=== PATIENT | male | born 1980 | race Caucasian/White ===

== ENCOUNTER 2016-06-16 13:06 | Outpatient (CLI) | payer OTHER ==
[2016-06-16] MEDS ORDERED: GADOPENTETATE DIMEGLUMINE 5 ML VIAL IVP ONE (14:03)
[2016-06-16] MEDS ORDERED: IOTHALAMATE MEGLUMINE 50 ML VIAL IU ONE (14:03)
[2016-06-16] MEDS ORDERED: BUFFERED LIDOCAINE 10 ML SYRINGE IU ONE (14:03)
== END 2016-06-16 13:07 | disposition home or self-care (01) ==
DX: M25.512 Pain in left shoulder (principal); M75.82 Other shoulder lesions, left shoulder
CPT/HCPCS: 23350; 73222; 77002; Q9961

== ENCOUNTER 2019-06-05 14:46 | Emergency (ER) | payer OTHER ==
--- NOTE | 2019-06-05 16:46 | ED Physician Documentation ---
PD HPI BACK INJURY - Stated complaint Stated Complaint: LT SHOULDER PAIN - History obtained from History obtained from: Patient - History of Present Illness Location: Left, Upper (scapular area) Type of injury: No: Fall, Twist (he had had cough and cold symptoms, so thought he had strained muscle with coughing. Having increasing pain left scapular area, radiating to left arm.), Blunt / blow Where injury occurred: Home Timing - onset: How many days ago (2-3) Timing - duration: Days Timing - details: Gradual onset, Still present Quality: Pain, Sharp, Aching Improved by: No: Rest Worsened by: Moving (left shoulder, causes it to hurt in scapular area.), Palpating, Other (does not hurt with breathing.) Associated symptoms: No: Fever, Weakness, Numbness Similar symptoms before: Has not had sx before Recently seen: Clinic (seen at [facility] and Rx Naproxen and methocarbamol without improvement. Says he had CXR there that was normal.) Review of Systems Constitutional: denies: Fever, Chills, Myalgias Nose: denies: Rhinorrhea / runny nose, Congestion Throat: denies: Sore throat Respiratory: reports: Cough (last week, improving) PD PAST MEDICAL HISTORY - Past Medical History Cardiovascular: None Respiratory: None Endocrine/Autoimmune: None GI: None : None HEENT: Chronic vision loss Psych: None Musculoskeletal: Other Derm: None - Past Surgical History Ortho: Other - Present Medications Home Medications: Ambulatory Orders Medication Instructions Recorded Confirmed Ibuprofen [Motrin] 800 mg PO Q8H PRN 11/29/16 11/29/16 Oxycodone HCl/Acetaminophen 1 each PO Q4H PRN #15 tablet 06/05/19 [Percocet 7.5-325 mg Tablet] dexAMETHasone [Decadron] 4 mg PO DAILY #5 tablet 06/05/19 - Allergies Allergies/Adverse Reactions: Allergies Allergy/AdvReac Type Severity Reaction Status Date / Time No Known Drug Allergies Allergy Verified 06/05/19 15:09 PD ED PE NORMAL - Vitals Vital signs reviewed: Yes - General General: Alert and oriented X 3, Well developed/nourished - Neck Neck: Supple, no meningeal sign, No adenopathy - Cardiac Cardiac: RRR, No murmur - Respiratory Respiratory: Clear bilaterally - Back Back: No spinal TTP, Other (tender left infrascapular area with point focal tender in muscle there. No tenderness to percussion in thoracic spine. No redness nor rash. ) - Derm Derm: Normal color, Warm and dry - Extremities Extremities: Other (not tender in the shoulder nor arm itself. ) - Neuro Neuro: Alert and oriented X 3, No motor deficit, No sensory deficit, Normal speech Results - Vitals Vitals: Vital Signs - 24 hr 06/05/19 06/05/19 15:09 17:54 Temperature 36.6 C Heart Rate 81 80 Respiratory 17 16 Rate Blood Pressure 142/76 H 138/74 H O2 Saturation 98 98 Oxygen O2 Source Room air PD MEDICAL DECISION MAKING - ED course Complexity details: considered differential (seems muscular. Not pleuritic. Has trigger point in scapular area that I injected with Lido/Kenalog. ), d/w patient Departure - Departure Disposition: Home, Self Care Clinical Impression: Muscle strain of left scapular region Qualifiers: Encounter type: initial encounter Qualified Code(s): S46.912A - Strain of unspecified muscle, fascia and tendon at shoulder and upper arm level, left arm, initial encounter Condition: Stable Record reviewed to determine appropriate education?: Yes Instructions: ED Sprain Thoracic Spine Follow-Up: [facility] [Provider Group] Prescriptions: dexAMETHasone [Decadron] 4 mg PO DAILY #5 tablet Oxycodone HCl/Acetaminophen [Percocet 7.5-325 mg Tablet] 1 each PO Q4H PRN #15 tablet PRN Reason: Pain Comments: Sling for the arm to reduce movement at the shoulder girdle the naproxen and methocarbamol anti-inflammatory and muscle relaxant. Add Decadron steroid anti-inflammatory as well. To that add Tylenol or oxycodone as needed for pain. Recheck if not improving well over the next couple of days. Heat and gentle range of motion of the shoulder once you start feeling better. Discharge Date/Time: 06/05/19 17:54
[2019-06-05] MEDS ORDERED: KETOROLAC 60 MG/2 ML VIAL IM STA (17:12)
[2019-06-05] MEDS ORDERED: TRIAMCINOLONE 40 MG/ML VIAL IM STA (17:13)
[2019-06-05 17:55] VITALS: BP 138/74
== END 2019-06-05 17:54 | disposition home or self-care (01) ==
LOC: ED 14:46
DX: S46.912A Strain of unspecified muscle, fascia and tendon at shoulder and upper arm level, left arm, initial encounter (principal); X58.XXXA Exposure to other specified factors, initial encounter; R05 Cough
CPT/HCPCS: 20552; 93005; 96374

== ENCOUNTER 2019-06-06 08:33 | Emergency (ER) | payer OTHER ==
--- NOTE | 2019-06-06 08:45 | ED Physician Documentation ---
PD HPI BACK INJURY - Stated complaint Stated Complaint: L SHOULDER PX - History obtained from History obtained from: Patient - History of Present Illness Location: Left, Upper (scapular area) Timing - onset: How many days ago (4-5) Worsened by: Moving, Palpating, Other (no change with breathing) Recently seen: Emergency Dept (seen yesterday in ER for this; was not able to get Rx for pain meds due to holiday hours of pharmacy and used take home meds. Was going to Pharmacy and pain was enough to come to ER instead. No change in pain from yesterday. No fever, no rash, no focal weakness.) Review of Systems Constitutional: denies: Fever, Chills Respiratory: denies: Dyspnea, Cough, Wheezing Skin: denies: Rash Musculoskeletal: denies: Neck pain Neurologic: denies: Focal weakness, Numbness PD PAST MEDICAL HISTORY - Past Medical History Cardiovascular: None Respiratory: None Endocrine/Autoimmune: None GI: None : None HEENT: Chronic vision loss Psych: None Musculoskeletal: Other Derm: None - Past Surgical History Ortho: Other - Present Medications Home Medications: Ambulatory Orders Medication Instructions Recorded Confirmed Ibuprofen [Motrin] 800 mg PO Q8H PRN 11/29/16 11/29/16 Oxycodone HCl/Acetaminophen 1 each PO Q4H PRN #15 tablet 06/05/19 [Percocet 7.5-325 mg Tablet] dexAMETHasone [Decadron] 4 mg PO DAILY #5 tablet 06/05/19 - Allergies Allergies/Adverse Reactions: Allergies Allergy/AdvReac Type Severity Reaction Status Date / Time No Known Drug Allergies Allergy Verified 06/06/19 08:41 PD ED PE NORMAL - Vitals Vital signs reviewed: Yes - General General: Alert and oriented X 3, Well developed/nourished - Neck Neck: Supple, no meningeal sign, No bony TTP, No adenopathy - Cardiac Cardiac: RRR, No murmur - Respiratory Respiratory: Clear bilaterally - Back Back: Other (left scapular area with tenderness in muscle. Triggers pain to shoulder/arm. Not tender in shoulder joint itself nor in arm. ) - Derm Derm: Normal color, Warm and dry, No rash Results - Vitals Vitals: Vital Signs - 24 hr 06/06/19 06/06/19 08:37 10:07 Temperature 36.5 C Heart Rate 78 66 Respiratory 16 16 Rate Blood Pressure 144/97 H 138/95 H O2 Saturation 99 95 Oxygen O2 Source Room air PD MEDICAL DECISION MAKING - ED course Complexity details: reviewed old records, considered differential, d/w patient Departure - Departure Disposition: 01 Home, Self Care Clinical Impression: Muscle strain of left scapular region Qualifiers: Encounter type: subsequent encounter Qualified Code(s): S46.912D - Strain of unspecified muscle, fascia and tendon at shoulder and upper arm level, left arm, subsequent encounter Condition: Stable Record reviewed to determine appropriate education?: Yes Comments: Continue with the treatment plan and prescriptions from last evening. Follow-up with your primary care in the next 2 to 3 days if not improved. Discharge Date/Time: 06/06/19 10:08
[2019-06-06] MEDS ORDERED: ACETAMINOPHEN 325 MG TABLET PO STA (09:05)
[2019-06-06] MEDS ORDERED: KETOROLAC 30 MG/ML VIAL IM STA (09:05)
[2019-06-06] MEDS ORDERED: HYDROmorphone 1 MG/ML CARPUJECT IM STA (09:05)
[2019-06-06 10:07] VITALS: BP 138/95
== END 2019-06-06 10:08 | disposition home or self-care (01) ==
LOC: ED 08:33
DX: S46.912A Strain of unspecified muscle, fascia and tendon at shoulder and upper arm level, left arm, initial encounter (principal); X58.XXXA Exposure to other specified factors, initial encounter
CPT/HCPCS: 96372; 99283; 99284; A9270; J1170

== ENCOUNTER 2019-08-19 07:34 | Outpatient (CLI) | payer OTHER ==
[2019-08-19 08:02] LABS: BASOPHILS # (AUTO) 0.1 10^3/uL (0.0-0.1); BASOPHILS % (AUTO) 0.9 %; EOSINOPHILS # (AUTO) 0.2 10^3/uL (0.0-0.7); EOSINOPHILS % (AUTO) 2.6 %; HGB - HEMOGLOBIN 16.3 g/dL (14.0-18.0); LYMPHOCYTES # (AUTO) 1.6 10^3/uL (1.5-3.5); LYMPHOCYTES % (AUTO) 20.1 %; MEAN CORPUSCULAR HEMOGLOBIN 30.4 pg (27.0-31.0); MEAN CORPUSCULAR HGB CONC 34.1 g/dL (32.0-36.0); MONOCYTES # (AUTO) 0.5 10^3/uL (0.0-1.0); MONOCYTES % (AUTO) 5.8 %; NEUTROPHILS # (AUTO) 5.7 10^3/uL (1.5-6.6); NEUTROPHILS % (AUTO) 70.4 %; PLT - PLATELET COUNT 265 10^3/uL (130-450); RED BLOOD COUNT 5.37 10^6/uL (4.70-6.10); RED CELL DISTRIBUTION WIDTH 13.1 % (12.0-15.0); WHITE BLOOD COUNT 8.1 x10^3/uL (4.8-10.8)
[2019-08-19 08:07] LABS: ALBUMIN 4.4 g/dL (3.2-5.5); ALBUMIN/GLOBULIN RATIO 1.4 (1.0-2.2); ALKALINE PHOSPHATASE 58 IU/L (42-121); ALT ALANINE AMINOTRANSFERASE 28 IU/L (10-60); AST ASPARTATE AMINOTRANSFERASE 24 IU/L (10-42); BILIRUBIN,TOTAL 0.9 mg/dL (0.2-1.0); BUN - BLOOD UREA NITROGEN 17 mg/dL (6-20); CALCIUM 9.5 mg/dL (8.5-10.3); CARBON DIOXIDE - CO2 24 mmol/L (21-32); CHLORIDE 104 mmol/L (101-111); CHOL/HDL RATIO 8.5 (<5.0); CHOLESTEROL 195 mg/dL; GFR - MDRD 83 (>89); GLUCOSE 116 mg/dL (70-100); HDL CHOLESTEROL 23 mg/dL; LDL CHOLESTEROL,CALCULATED 114 mg/dL; SODIUM 138 mmol/L (135-145); TOTAL PROTEIN 7.5 g/dL (6.7-8.2); VLDL CHOLESTEROL 58 mg/dL
[2019-08-19 08:46] LABS: HB2 TOTAL 16.7 g/dL; HEMOGLOBIN A1C 0.65 g/dL; HEMOGLOBIN A1C % 5.7 % (4.6-6.2)
== END 2019-08-19 07:35 | disposition home or self-care (01) ==
LOC: LAB 07:34
PROVIDERS: ATTEND Physician Assistant
DX: I10 Essential (primary) hypertension (principal); Z82.49 Family history of ischemic heart disease and other diseases of the circulatory system; Z83.3 Family history of diabetes mellitus; R53.83 Other fatigue; Z79.899 Other long term (current) drug therapy
CPT/HCPCS: 36415; 80053; 80061; 83036; 83721; 84443; 85025

== ENCOUNTER 2020-10-06 05:06 | Emergency (ER) | payer OTHER ==
--- NOTE | 2020-10-06 05:34 | ED Physician Documentation ---
PD HPI SYNCOPE - Stated complaint Stated Complaint: SYNCOPY - Chief complaint Chief Complaint: Neuro - History obtained from History obtained from: Patient, Family () - History of Present Illness Witnessed: Witnessed (by ) Timing - onset: How many hours ago (1), Today Preceding symptoms: Abdominal pain (had severe lower/left abd cramps with fee ling of gas and having to have BM. He went to toilet and was sitting there straining to get stool out, felt lightheaded and then was on the floor. reported to EMS that she saw him on the floor, eyes rolled back, with pale skin color, awoke after 30 sec.), Light headed. No: Headache, Nausea / vomiting Associated symptoms: Abdominal pain. No: Seizure, Headache, Chest pain, Nausea / vomiting Contributing factors: Noxious stimulae (lower abd cramps and then when he awoke, he got onto toilet again and had large watery stool output without noted blood.). No: Recent med change Injury occurred: No: Fell, Head injury, Neck injury Similar symptoms before: Has not had sx before Recently seen: Clinic (he got his J&J vaccine 4 days ago with some soreness right arm. No fevers. Mild general aches.), Not recently seen Review of Systems Constitutional: reports: Myalgias. denies: Fever, Chills Nose: denies: Rhinorrhea / runny nose, Congestion Throat: denies: Sore throat Respiratory: denies: Cough GI: reports: Abdominal Pain (just the hour or so ago. Resolved after stool, and no return of pain.), Diarrhea (just once [employer], and stomach pain resolved.). denies: Nausea, Vomiting Musculoskeletal: denies: Neck pain, Back pain Neurologic: reports: Syncope (this is first time he has done this.). denies: Headache Psychiatric: reports: Depressed, Anxiety. denies: Insomnia PD PAST MEDICAL HISTORY - Past Medical History Cardiovascular: None Respiratory: None Endocrine/Autoimmune: None GI: None : None HEENT: Chronic vision loss Psych: None Musculoskeletal: Other Derm: None - Past Surgical History Past Surgical History: Yes Ortho: Other - Present Medications Home Medications: Ambulatory Orders Medication Instructions Recorded Confirmed Atorvastatin Calcium 40 mg PO DAILY 10/06/20 10/06/20 Dextroamphetamine/Amphetamine 20 mg PO DAILY 10/06/20 10/06/20 [Adderall 20 mg Tablet] lamoTRIgine [Lamictal Xr] 25 mg PO DAILY 10/06/20 10/06/20 - Allergies Allergies/Adverse Reactions: Allergies Allergy/AdvReac Type Severity Reaction Status Date / Time No Known Drug Allergies Allergy Verified 06/06/19 08:41 - Living Situation Living Situation: reports: With spouse/s.o. Living Arrangement: reports: At home - Social History Does the pt smoke?: No Smoking Status: Never smoker Does the pt drink ETOH?: No Does the pt have substance abuse?: No - Family History Family history: reports: Non contributory PD ED PE NORMAL - Vitals Vital signs reviewed: Yes - General General: Alert and oriented X 3, No acute distress, Well developed/nourished - HEENT HEENT: Atraumatic - Neck Neck: Supple, no meningeal sign, No adenopathy - Cardiac Cardiac: RRR, No murmur - Respiratory Respiratory: Clear bilaterally - Abdomen Abdomen: Normal bowel sounds, Soft, Non tender, Non distended, No organomegaly - Back Back: No CVA TTP - Derm Derm: Normal color, Warm and dry - Extremities Extremities: No tenderness to palpate, Normal ROM s pain - Neuro Neuro: Alert and oriented X 3, No motor deficit, Normal speech Eye Opening: Spontaneous Motor: Obeys Commands Verbal: Oriented GCS Score: 15 Results - Vitals Vitals: Vital Signs - 24 hr 10/06/20 10/06/20 05:12 06:28 Temperature 36.2 C L Heart Rate 90 76 Respiratory 16 18 Rate Blood Pressure 125/80 132/85 H O2 Saturation 98 98 Oxygen O2 Source Room air - EKG (time done) 05:37 Rate: Rate (enter#) (69) Whitman: Normal Intervals: Normal CT QRS: Normal Ischemia: Normal ST segments. No: ST elevation c/w ischemia, ST depression - Labs Labs: Laboratory Tests 10/06/20 10/06/20 10/06/20 05:46 05:46 05:46 WBC 11.4 H RBC 5.83 Hgb 17.7 Hct 50.4 MCV 86.4 MCH 30.4 MCHC 35.1 RDW 12.3 Plt Count 225 MPV 9.9 Neut # (Auto) 8.4 H Lymph # (Auto) 1.9 Toole # (Auto) 0.7 Eos # (Auto) 0.3 Baso # (Auto) 0.1 Absolute Nucleated RBC 0.00 Nucleated RBC % 0.0 Sodium 136 Potassium 3.4 L Chloride 102 Carbon Dioxide 23 Anion Gap 11.0 BUN 25 H Creatinine 1.0 Estimated GFR (MDRD) 82 L Glucose 161 H Calcium 9.8 Magnesium 2.0 Total Bilirubin 0.7 AST 29 ALT 38 Alkaline Phosphatase 68 Troponin I High Sens 4.0 Total Protein 7.3 Albumin 4.3 Globulin 3.0 Albumin/Globulin Ratio 1.4 Lipase 29 PD MEDICAL DECISION MAKING - ED course Complexity details: reviewed results, considered differential (sounds like vasovagal syncope related to the abd pains and the impending large diarrheal movement. He feels good since stool. ), d/w patient Departure - Departure Disposition: 01 Home, Self Care Clinical Impression: Bilateral lower abdominal cramping, Syncope, vasovagal Diarrhea Qualifiers: Diarrhea type: unspecified type Qualified Code(s): R19.7 - Diarrhea, unspecified Condition: Stable Record reviewed to determine appropriate education?: Yes Instructions: ED Syncope Vasovagal Follow-Up: ANGELICA OSBORN PA-C [Primary Care Provider] - Comments: Blood tests and EKG are normal here. It sounds likely you had what is termed a vasovagal episode which is a drop in heart rate and blood pressure related to a stimulus such as pain or the grunting you are on the toilet. Stay well-hydrated through the day today. You could rest at home today as there may still be some ongoing diarrhea. Recheck if not improved over a day or 2 or if you have significant continuous pain, bloody stools, lightheaded ongoing or other symptoms. Forms: Activity restrictions Discharge Date/Time: 10/06/20 06:31
[2020-10-06 05:52] LABS: BASOPHILS # (AUTO) 0.1 10^3/uL (0.0-0.1); BASOPHILS % (AUTO) 0.7 %; EOSINOPHILS # (AUTO) 0.3 10^3/uL (0.0-0.7); EOSINOPHILS % (AUTO) 2.5 %; HCT - HEMATOCRIT 50.4 % (42.0-52.0); HGB - HEMOGLOBIN 17.7 g/dL (14.0-18.0); LYMPHOCYTES # (AUTO) 1.9 10^3/uL (1.5-3.5); LYMPHOCYTES % (AUTO) 16.3 %; MEAN CORPUSCULAR HEMOGLOBIN 30.4 pg (27.0-31.0); MEAN CORPUSCULAR HGB CONC 35.1 g/dL (32.0-36.0); MEAN CORPUSCULAR VOLUME 86.4 fL (80.0-94.0); MEAN PLATELET VOLUME 9.9 fL (7.4-11.4); MONOCYTES # (AUTO) 0.7 10^3/uL (0.0-1.0); MONOCYTES % (AUTO) 6.2 %; NEUTROPHILS # (AUTO) 8.4 10^3/uL (1.5-6.6); NEUTROPHILS % (AUTO) 73.9 %; PLT - PLATELET COUNT 225 10^3/uL (130-450); RED BLOOD COUNT 5.83 10^6/uL (4.70-6.10); RED CELL DISTRIBUTION WIDTH 12.3 % (12.0-15.0); WHITE BLOOD COUNT 11.4 x10^3/uL (4.8-10.8)
[2020-10-06 06:05] LABS: ALBUMIN 4.3 g/dL (3.2-5.5); ALBUMIN/GLOBULIN RATIO 1.4 (1.0-2.2); BILIRUBIN,TOTAL 0.7 mg/dL (0.2-1.0); CALCIUM 9.8 mg/dL (8.5-10.3); POTASSIUM 3.4 mmol/L (3.5-5.0); TOTAL PROTEIN 7.3 g/dL (6.7-8.2)
[2020-10-06 06:28] VITALS: BP 132/85
== END 2020-10-06 06:31 | disposition home or self-care (01) ==
LOC: ED 05:06
DX: R55 Syncope and collapse (principal); R10.32 Left lower quadrant pain; R10.31 Right lower quadrant pain; R19.7 Diarrhea, unspecified
CPT/HCPCS: 36415; 80053; 83690; 83735; 84484; 85025; 93005; 99284

== ENCOUNTER 2021-02-13 16:31 | Emergency (ER) | payer OTHER ==
[2021-02-13 16:50] VITALS: BP 142/84
--- NOTE | 2021-02-13 17:22 | ED Physician Documentation ---
History of Present Illness - Stated complaint Stated Complaint: COVID TEST - Chief complaint Chief Complaint: General - Additonal information Additional information: 40-year-old male has 3 days of cough congestion but no fevers. He is here for COVID-19 screening. He is fully vaccinated but his colleagues son whom he had close contact with last week has tested positive for Covid. Patient is not a smoker but is frequently around campfires. He denies a history of asthma COPD hypertension or diabetes. Review of Systems Constitutional: denies: Fever, Chills Eyes: reports: Reviewed and negative Nose: reports: Rhinorrhea / runny nose, Congestion Throat: reports: Reviewed and negative Cardiac: reports: Reviewed and negative Respiratory: reports: Cough GI: reports: Reviewed and negative : reports: Reviewed and negative PD PAST MEDICAL HISTORY - Past Medical History Past Medical History: Yes Cardiovascular: None Respiratory: None Endocrine/Autoimmune: None GI: None : None HEENT: Chronic vision loss Psych: None Musculoskeletal: Other Derm: None - Past Surgical History Past Surgical History: Yes Ortho: Other - Present Medications Home Medications: Ambulatory Orders Medication Instructions Recorded Confirmed Atorvastatin Calcium 40 mg PO DAILY 10/06/20 10/06/20 Dextroamphetamine/Amphetamine 20 mg PO DAILY 10/06/20 10/06/20 [Adderall 20 mg Tablet] lamoTRIgine [Lamictal Xr] 25 mg PO DAILY 10/06/20 10/06/20 - Allergies Allergies/Adverse Reactions: Allergies Allergy/AdvReac Type Severity Reaction Status Date / Time No Known Drug Allergies Allergy Verified 06/06/19 08:41 - Social History Does the pt smoke?: No Smoking Status: Never smoker Does the pt drink ETOH?: No Does the pt have substance abuse?: No - Immunizations Immunizations are current?: Yes PD ED PE NORMAL - General General: Alert and oriented X 3, No acute distress, Other (Copious nasal secretions) - HEENT HEENT: Ears normal, Moist mucous membranes, Pharynx benign - Neck Neck: Supple, no meningeal sign, No bony TTP - Cardiac Cardiac: RRR, No murmur - Respiratory Respiratory: No respiratory distress - Abdomen Abdomen: Normal bowel sounds, Soft - Back Back: No CVA TTP, No spinal TTP Results - Vitals Vitals: Vital Signs - 24 hr 02/13/21 16:37 Temperature 36 C L Heart Rate 80 Respiratory 16 Rate Blood Pressure 142/84 H O2 Saturation 98 Oxygen O2 Source Room air PD MEDICAL DECISION MAKING - ED course Complexity details: d/w patient ED course: 40-year-old male here for COVID-19 screening. He had close contact last week with a colleague son who subsequently tested positive for Covid. However this gentleman is fully vaccinated. Not hypoxic and unremarkable cardiopulmonary auscultation. Screening is pending. Emergent return precautions discussed. Departure - Departure Disposition: 01 Home, Self Care Clinical Impression: Encounter for screening for COVID-19 Upper respiratory infection Qualifiers: URI type: unspecified viral URI Qualified Code(s): J06.9 - Acute upper respiratory infection, unspecified Condition: Stable Record reviewed to determine appropriate education?: Yes Comments: You have a Covid test pending. You need to self quarantine until the result is done and negative. Do not leave your house. Do not get near anybody. The results should be done in 48 to 72 hours. We will call with a positive result, the fastest way to get a negative result for confirmation though is to go to the hospital website at [email or web address], click on the my [employer] tab and sign up for the patient portal. If any friends or family get sick and would like to have a Covid test done, but do not have signs or symptoms that would necessitate being hospitalized, we encourage testing through our coronavirus swabbing station, call [phone] to schedule an appointment.
== END 2021-02-13 17:25 | disposition home or self-care (01) ==
LOC: ED 16:31
DX: J06.9 Acute upper respiratory infection, unspecified (principal); Z20.822 Contact with and (suspected) exposure to COVID-19
CPT/HCPCS: 99282; 99283

== ENCOUNTER 2021-03-05 08:48 | Outpatient (CLI) | payer OTHER ==
[2021-03-05 09:25] LABS: ALBUMIN 4.5 g/dL (3.2-5.5); ALBUMIN/GLOBULIN RATIO 1.4 (1.0-2.2); ALKALINE PHOSPHATASE 66 IU/L (42-121); ALT ALANINE AMINOTRANSFERASE 49 IU/L (10-60); AST ASPARTATE AMINOTRANSFERASE 37 IU/L (10-42); BILIRUBIN,TOTAL 1.1 mg/dL (0.2-1.0); BUN - BLOOD UREA NITROGEN 24 mg/dL (6-20); CALCIUM 9.7 mg/dL (8.5-10.3); CARBON DIOXIDE - CO2 29 mmol/L (21-32); CHLORIDE 102 mmol/L (101-111); CHOLESTEROL 187 mg/dL; CREATININE 1.1 mg/dL (0.6-1.2); GFR - MDRD 73 (>89); GLUCOSE 121 mg/dL (70-100); HDL CHOLESTEROL 31 mg/dL; LDL CHOLESTEROL,CALCULATED 100 mg/dL; LDL/HDL RATIO 3.2 (<3.6); POTASSIUM 4.5 mmol/L (3.5-5.0); SODIUM 140 mmol/L (135-145); TOTAL PROTEIN 7.7 g/dL (6.7-8.2); TRIGLYCERIDES 281 mg/dL; VLDL CHOLESTEROL 56 mg/dL
[2021-03-05 09:55] LABS: ESTIMATED AVERAGE GLUCOSE 131 mg/dL (70-100); HEMOGLOBIN A1c% 6.2 % (4.27-6.07)
== END 2021-03-05 08:49 | disposition home or self-care (01) ==
LOC: LAB 08:48
PROVIDERS: ATTEND Physician Assistant
DX: F90.9 Attention-deficit hyperactivity disorder, unspecified type (principal); Z79.899 Other long term (current) drug therapy; G47.00 Insomnia, unspecified; G89.4 Chronic pain syndrome; I10 Essential (primary) hypertension; F41.9 Anxiety disorder, unspecified; F32.9 Major depressive disorder, single episode, unspecified; R53.83 Other fatigue
CPT/HCPCS: 36415; 80053; 80061; 83036; 83721

== ENCOUNTER 2023-06-09 07:58 | Outpatient (CLI) | payer OTHER ==
--- NOTE | 2023-06-09 18:51 | MRI Report ---
PROCEDURE: CERVICAL SPINE WO INDICATIONS: NECK AND BILATERAL RAICULAR PAIN TECHNIQUE: Noncontrast sagittal T1 spin echo and T2 fast spin echo, sagittal STIR, foraminal oblique sagittal T2 fast spin echo, and axial gradient echo or T2 fast spin echo through the cervical spine. COMPARISON: None. FINDINGS: Image quality: Diagnostic, with note made of motion artifact. Alignment and Curvature: There is overall straightening of the normal cervical lordosis. No signifi cant AP alignment abnormality can be seen. Bone Marrow: Marrow demonstrates normal overall signal. Spinal Cord: Visualized spinal cord has normal size and signal. No cerebellar tonsillar herniation. Paraspinous Soft Tissues: No paravertebral masses. Prevertebral soft tissues are normal in thicknes s. C2-C3: No significant abnormality is seen. C3-C4: The disc height is well-preserved. There is loss of disc signal seen. Moderate disc osteoph yte complex is seen. Mild to moderate bilateral neuroforaminal narrowing can be seen. No central nico l narrowing is seen. C4-C5: The disc height is well-preserved. There is loss of disc signal seen. Moderate disc osteophyt e complex is seen, which is eccentric to the right side. Mild to moderate facet hypertrophy is seen. Moderate bilateral neural foraminal narrowing is seen. Mild to moderate central canal narrowing is s een, with minimal mass effect upon the ventral spinal cord. C5-C6: Moderate loss of disc height and signal are seen. At least moderate disc osteophyte complex i s seen, which is slightly eccentric to the left. Uncovertebral joint hypertrophy is seen at this lev el. Moderate facet hypertrophy is seen. Moderate to severe bilateral neuroforaminal narrowing can be seen, right worse than left. Moderate central canal narrowing is seen. Associated mass effect is s een upon the ventral spinal cord. C6-C7: Moderate loss of disc height and signal are seen. Moderate disc osteophyte complex is seen, w hich is eccentric to the left. Mild facet hypertrophy is seen. There is moderate to severe left-side d and at least moderate right-sided neuroforaminal narrowing. Mild to moderate central canal narrowin g is seen, with minimal mass effect upon the ventral spinal cord. C7-T1: The disc height and disc signal are well preserved. Moderate disc osteophyte complex is seen. Mild bilateral neural foraminal narrowing is seen. No central canal narrowing is seen. IMPRESSION: Multiple levels of cervical spine degenerative change can be seen, which are worst at C5-C6 and C6-C7 . Straightening of the normal cervical lordosis is seen, which is commonly observed in patients with mu scular spasm. Reviewed by: Miquel Watts MD on 06/09/2023 5:49 PM [place] Approved by: Miquel Watts MD on 06/09/2023 5:49 PM [facility] Station ID: [id number]
== END 2023-06-09 07:59 | disposition home or self-care (01) ==
LOC: DI 07:58
PROVIDERS: ATTEND Internal Medicine
DX: M47.812 Spondylosis without myelopathy or radiculopathy, cervical region (principal)

== ENCOUNTER 2023-06-28 13:51 | Emergency (ER) | payer OTHER ==
[2023-06-28 14:13] VITALS: BP 162/100; O2SAT 97
--- NOTE | 2023-06-28 14:50 | ED Physician Documentation ---
History of Present Illness - Stated complaint Stated Complaint: GLF/RT ELBOW PX - Chief complaint Chief Complaint: Ext Problem - History obtained from History obtained from: Patient - History of Present Illness Timing: Today Pain level max: 4 Pain level now: 0 - Additonal information Additional information: 42-year-old male presents to the emergency department send that he slipped down the stairs today and in the right elbow. He states had minimal pain originally, but there is small swelling of the elbow, concerned about potential fracture. He states it does not hurt now. Full range of motion without pain. No numbness or tingling. Nothing makes it better or worse. Review of Systems Constitutional: denies: Fever Musculoskeletal: denies: Neck pain, Back pain Neurologic: denies: Headache, Head injury PD PAST MEDICAL HISTORY - Past Medical History Cardiovascular: None Respiratory: None Endocrine/Autoimmune: None GI: None : None HEENT: Chronic vision loss Psych: None Musculoskeletal: Other Derm: None - Past Surgical History Past Surgical History: Yes Ortho: Other - Present Medications Home Medications: Ambulatory Orders Medication Instructions Recorded Confirmed Atorvastatin Calcium 40 mg PO DAILY 10/06/20 10/06/20 Lisdexamfetamine Dimesylate 60 mg PO DAILY 06/28/23 [Vyvanse] - Allergies Allergies/Adverse Reactions: Allergies Allergy/AdvReac Type Severity Reaction Status Date / Time No Known Drug Allergies Allergy Verified 06/28/23 14:04 - Social History Does the pt smoke?: No Smoking Status: Never smoker Does the pt drink ETOH?: No Does the pt have substance abuse?: No - Immunizations Immunizations are current?: Yes PD ED PE NORMAL - Vitals Vital signs reviewed: Yes - General General: Alert and oriented X 3, No acute distress - HEENT HEENT: Atraumatic, PERRL, Moist mucous membranes - Neck Neck: Supple, no meningeal sign - Derm Derm: Warm and dry - Extremities Extremities: Other (R elbow - Mild swelling at the olecranon process. No bony tenderness. Full range of motion of the elbow without pain. No pain with supination and pronation of the forearm. Neurovascular intact. Otherwise normal examination of the right upper extremity.) - Neuro Neuro: Alert and oriented X 3 - Psych Psych: Normal mood, Normal affect Results - Vitals Vitals: Vital Signs - 24 hr 06/28/23 13:58 Temperature 36.5 C Heart Rate 99 Respiratory 17 Rate Blood Pressure 162/100 H O2 Saturation 97 Oxygen O2 Source Room air - Rads (name of study) Right elbow x-ray Relevant Findings:: Final report received, See rad report PD Medical Decision Making - ED course Complexity details: reviewed results, re-evaluated patient, considered differential, d/w patient ED course: There is a linear calcification at the tip of the olecranon process on x-ray. He has no swelling or tenderness at this spot. Do not feel that this is an acute injury. Using the arm freely and without any pain in the emergency department. We will use Motrin and Tylenol as needed for any pain at home. Will have him follow-up with his doctor for further care. No evidence of acute fracture or dislocation clinically. Again the calcification seen On x-ray does not have any symptoms correlated clinically. Patient counseled regarding signs and symptoms for which I believe and urgent re-evaluation would be necessary. Patient with good understanding of and agreement to plan and is comfortable going home at this time This document was made in part using voice recognition software. While efforts are made to proofread this document, sound alike and grammatical errors may occur. Departure - Departure Disposition: 01 Home, Self Care Clinical Impression: Contusion of right elbow Qualifiers: Encounter type: initial encounter Qualified Code(s): S50.01XA - Contusion of right elbow, initial encounter Condition: Good Instructions: ED Contusion Elbow Follow-Up: your,doctor in 1 week [Other] Comments: As we discussed on your x-ray there is 1 small linear calcification near the tip of your elbow, but you do not have any pain or tenderness at this site, therefore I do not feel that this is an acute injury. Otherwise your x-rays do not show any acute abnormalities. You can use Motrin or Tylenol as needed for any pain. Please follow-up with your doctor for further care as needed. Return if you worsen. Forms: PCP List Discharge Date/Time: 06/28/23 15:21
--- NOTE | 2023-06-28 14:56 | XRAY Report ---
PROCEDURE: Elbow 3+V RT INDICATIONS: fall/pain TECHNIQUE: 3 views of the elbow were acquired. COMPARISON: None. FINDINGS: Bones: Small linear calcification adjacent to the olecranon posteriorly. No suspicious bony lesions. Soft tissues: No effusion. No suspicious soft tissue calcifications or masses. Mild soft tissue ed sebastián posterior to the elbow. IMPRESSION: Small linear calcification adjacent to the olecranon. Small avulsion injury cannot be excluded. Reviewed by: Susan Vargas MD on 06/28/2023 2:55 PM PST Approved by: Susan Vargas MD on 06/28/2023 2:55 PM PST Station ID: [id number]
== END 2023-06-28 15:21 | disposition home or self-care (01) ==
LOC: ED 13:51
DX: S50.01XA Contusion of right elbow, initial encounter (principal); W10.9XXA Fall (on) (from) unspecified stairs and steps, initial encounter
CPT/HCPCS: 99283

== ENCOUNTER 2023-08-16 09:29 | Outpatient (CLI) | payer OTHER ==
--- NOTE | 2023-08-16 10:47 | MRI Report ---
PROCEDURE: Lumbar Spine WO INDICATIONS: LOW BACK PAIN TECHNIQUE: Noncontrast sagittal T1 spin echo and T2 fast echo, sagittal STIR, axial T1 and T2 fast spin echo thr ough the lumbar spine. In cases with scoliosis, additional coronal T2 fast spin echo may be performe d. COMPARISON: None. FINDINGS: Image quality: Excellent. Alignment and Curvature: There is normal bony alignment. Bone Marrow: Marrow is of normal overall signal. No acute vertebral body compression fractures. Spinal Cord: Conus medullaris terminates at the L1-2 level. Visualized cord demonstrates normal sig nal and size. Paraspinous Soft Tissues: No paravertebral masses. T12-L1: Normal in appearance. L1-L2: Normal in appearance. L2-L3: Broad-based disc bulge. Normal disc signal. L3-L4: Broad-based disc bulge. Normal disc signal. L4-L5: Broad-based disc bulge. Normal disc signal. Mild facet hypertrophy with trace left facet eff usion. Mild bilateral neural foraminal narrowing. L5-S1: Asymmetric right foraminal disc bulge. Normal disc signal. Mild left neural foraminal narrow ing. IMPRESSION: Mild, multilevel degenerative disc disease and facet arthrosis. No significant spinal canal narrowing . Up to mild neural foraminal narrowing at L4-5 and L5-S1. Reviewed by: Kip Price MD on 08/16/2023 10:46 AM PDT Approved by: Kip Price MD on 08/16/2023 10:46 AM PDT Station ID: [id number]
== END 2023-08-16 09:30 | disposition home or self-care (01) ==
LOC: DI 09:29
PROVIDERS: ATTEND Internal Medicine
DX: M51.36 Other intervertebral disc degeneration, lumbar region (principal); M47.816 Spondylosis without myelopathy or radiculopathy, lumbar region; M48.061 Spinal stenosis, lumbar region without neurogenic claudication; M51.37 Other intervertebral disc degeneration, lumbosacral region; M48.07 Spinal stenosis, lumbosacral region

== ENCOUNTER 2023-12-12 11:16 | Emergency (ER) | payer OTHER ==
[2023-12-12 12:17] LABS: BASOPHILS # (AUTO) 0.1 10^3/uL (0.0-0.1); BASOPHILS % (AUTO) 0.7 %; EOSINOPHILS # (AUTO) 0.1 10^3/uL (0.0-0.7); EOSINOPHILS % (AUTO) 1.6 %; HCT - HEMATOCRIT 48.5 % (42.0-52.0); HGB - HEMOGLOBIN 16.6 g/dL (14.0-18.0); LYMPHOCYTES # (AUTO) 1.5 10^3/uL (1.5-3.5); LYMPHOCYTES % (AUTO) 16.9 %; MEAN CORPUSCULAR HEMOGLOBIN 29.4 pg (27.0-31.0); MEAN CORPUSCULAR HGB CONC 34.2 g/dL (32.0-36.0); MEAN PLATELET VOLUME 9.3 fL (7.4-11.4); MONOCYTES # (AUTO) 0.4 10^3/uL (0.0-1.0); NEUTROPHILS # (AUTO) 6.5 10^3/uL (1.5-6.6); NEUTROPHILS % (AUTO) 75.6 %; PLT - PLATELET COUNT 319 10^3/uL (130-450); RED BLOOD COUNT 5.64 10^6/uL (4.70-6.10); RED CELL DISTRIBUTION WIDTH 12.9 % (12.0-15.0); WHITE BLOOD COUNT 8.6 x10^3/uL (4.8-10.8)
[2023-12-12 12:28] LABS: ALBUMIN 4.8 g/dL (3.2-5.5); ALBUMIN/GLOBULIN RATIO 1.4 (1.0-2.2); BILIRUBIN,TOTAL 1.1 mg/dL (0.2-1.0); CALCIUM 10.3 mg/dL (8.5-10.3); CREATININE 1.2 mg/dL (0.6-1.3); MAGNESIUM 1.9 mg/dL (1.7-2.3); POTASSIUM 3.7 mmol/L (3.5-4.5); TOTAL PROTEIN 8.3 g/dL (6.4-8.9)
[2023-12-12] MEDS: SODIUM CHLORIDE 0.9% 1,000 ML IV ONE (12:50)
--- NOTE | 2023-12-12 12:53 | ED Physician Documentation ---
History of Present Illness - Stated complaint Stated Complaint: DIZZINESS,BILAT ARM WEAKNESS/NUMB - Chief complaint Chief Complaint: Neuro - Additonal information Additional information: 43-year-old male with history of hypertension, hypercholesterolemia, asthma, PTSD, ADD, ADHD, chronic back pain, tobacco dependence presents emergency department for dizziness and weakness. Patient appears quite aloof on exam he says that him and his are going through a lot of stress right now that he is trying to work on he says he also has not been sleeping for the last 3 to 4 days and has been dealing with a lot of other at home stressors. He is tearful when he is sharing these things. He says around 9 AM today started feeling really heavy sensation with severe anxiety and dizziness may be shortness of breath but having a hard time describing it with no chest pain no nausea vomiting no recent illnesses. PD PAST MEDICAL HISTORY - Past Medical History Past Medical History: Yes Cardiovascular: Hypertension, High cholesterol Respiratory: Asthma Endocrine/Autoimmune: None GI: GERD : None HEENT: Chronic vision loss Psych: ADD/ADHD, Post traumatic stress disorder, Other Musculoskeletal: Chronic back pain, Other Derm: None - Past Surgical History Past Surgical History: Yes Ortho: Spine surgery, Other - Present Medications Home Medications: Ambulatory Orders Medication Instructions Recorded Confirmed Lisdexamfetamine Dimesylate 60 mg PO DAILY 06/28/23 12/12/23 [Vyvanse] Rosuvastatin Calcium 40 mg PO DAILY 10/27/23 12/12/23 Fluoxetine HCl [Prozac] 40 mg PO BID 12/12/23 12/12/23 Losartan/Hydrochlorothiazide 1 each PO DAILY 12/12/23 12/12/23 [Hyzaar 100-25 Tablet] - Allergies Allergies/Adverse Reactions: Allergies Allergy/AdvReac Type Severity Reaction Status Date / Time No Known Drug Allergies Allergy Verified 12/12/23 11:25 - Social History Does the pt smoke?: No Smoking Status: Never smoker Does the pt drink ETOH?: No Does the pt have substance abuse?: No - Immunizations Immunizations are current?: Yes - POLST Patient has POLST: No PD ED PE NORMAL - Vitals Vital signs reviewed: Yes - General General: Alert and oriented X 3, Well developed/nourished - HEENT HEENT: Atraumatic, PERRL - Neck Neck: Supple, no meningeal sign - Cardiac Cardiac: RRR - Respiratory Respiratory: No respiratory distress - Abdomen Abdomen: Normal bowel sounds - Back Back: No CVA TTP - Derm Derm: Normal color, Warm and dry, No rash - Extremities Extremities: No edema, No calf tenderness / cord - Neuro Neuro: Alert and oriented X 3, first dyer 2-12 intact, No motor deficit, No sensory deficit, Normal speech Results - Vitals Vitals: Vital Signs - 24 hr 12/12/23 12/12/23 12/12/23 11:25 12:55 18:10 Temperature 37 C 36.5 C Heart Rate 91 112 H 74 Respiratory 16 12 16 Rate Blood Pressure 154/105 H 141/94 H 113/74 O2 Saturation 100 97 97 12/12/23 12/12/23 20:00 21:42 Temperature Heart Rate 71 77 Respiratory 18 18 Rate Blood Pressure 118/78 123/81 H O2 Saturation 98 98 Oxygen O2 Source Room air - EKG (time done) 1247 EKG releavant findings:: EKG personally interpreted by author of this note. Relevant findings are: Rate: Rate (enter#) (76) Rhythm: NSR Mohler: LAD Intervals: Normal WI QRS: Normal Ischemia: Normal ST segments Computer interpretation: Agree with computer - Labs Labs: Laboratory Tests 12/12/23 12/12/23 12/12/23 12:04 12:10 12:10 WBC 8.6 RBC 5.64 Hgb 16.6 Hct 48.5 MCV 86.0 MCH 29.4 MCHC 34.2 RDW 12.9 Plt Count 319 MPV 9.3 Neut # (Auto) 6.5 Lymph # (Auto) 1.5 [place] # (Auto) 0.4 Eos # (Auto) 0.1 Baso # (Auto) 0.1 Absolute Nucleated RBC 0.00 Nucleated RBC % 0.0 Sodium 135 Potassium 3.7 Chloride 98 L Carbon Dioxide 31 Anion Gap 6.0 BUN 25 H Creatinine 1.2 Estimated GFR (MDRD) 65 L Glucose 129 H POC Whole Bld Glucose Calcium 10.3 Magnesium 1.9 Total Bilirubin 1.1 H AST 34 ALT 41 Alkaline Phosphatase 88 Troponin I High Sens 2.7 Total Protein 8.3 Albumin 4.8 Globulin 3.5 Albumin/Globulin Ratio 1.4 Lipase 24 Urine Color Urine Clarity Urine pH Ur Specific Elfrida Urine Protein Urine Glucose (UA) Urine Ketones Urine Occult Blood Urine Nitrite Urine Bilirubin Urine Urobilinogen Ur Leukocyte Esterase Ur Microscopic Review Urine Culture Comments Nasal Adenovirus (PCR) Nasal B. parapertussis DNA (PCR) Nasal Coronavir 229E PCR Nasal Coronavir HKU1 PCR Nasal Coronavir NL63 PCR Nasal Coronavir OC43 PCR Nasal Enterovir/Rhinovir PCR Nasal Influenza B PCR Nasal Influenza A PCR Nasal Parainfluen 1 PCR Nasal Parainfluen 2 PCR Nasal Parainfluen 3 PCR Nasal Parainfluen 4 PCR Nasal RSV (PCR) Nasal B.pertussis DNA PCR Nasal C.pneumoniae (PCR) Jono Human Metapneumo PCR Nasal M.pneumoniae (PCR) Nasal SARS-CoV-2 (PCR) Urine Opiates Screen Ur Buprenorphine Scrn Ur Oxycodone Screen Urine Methadone Screen Ur Barbiturates Screen Ur Tricyclics Screen Ur Phencyclidine Scrn Ur Amphetamine Screen U Methamphetamines Scrn U Benzodiazepines Scrn Urine Cocaine Screen U Cannabinoids Screen Ur Drug Screen Comment 12/12/23 12/12/23 12/12/23 12:40 12:45 13:40 WBC RBC Hgb Hct MCV MCH MCHC RDW Plt Count MPV Neut # (Auto) Lymph # (Auto) [place] # (Auto) Eos # (Auto) Baso # (Auto) Absolute Nucleated RBC Nucleated RBC % Sodium Potassium Chloride Carbon Dioxide Anion Gap BUN Creatinine Estimated GFR (MDRD) Glucose POC Whole Bld Glucose 129 H Calcium Magnesium Total Bilirubin AST ALT Alkaline Phosphatase Troponin I High Sens Total Protein Albumin Globulin Albumin/Globulin Ratio Lipase Urine Color YELLOW Urine Clarity CLEAR Urine pH 7.5 Ur Specific Elfrida 1.020 Urine Protein TRACE Urine Glucose (UA) NEGATIVE Urine Ketones NEGATIVE Urine Occult Blood NEGATIVE Urine Nitrite NEGATIVE Urine Bilirubin NEGATIVE Urine Urobilinogen 0.2 (NORMAL) Ur Leukocyte Esterase NEGATIVE Ur Microscopic Review NOT INDICATED Urine Culture Comments NOT INDICATED Nasal Adenovirus (PCR) NOT DETECTED Nasal B. parapertussis DNA (PCR) NOT DETECTED Nasal Coronavir 229E PCR NOT DETECTED Nasal Coronavir HKU1 PCR NOT DETECTED Nasal Coronavir NL63 PCR NOT DETECTED Nasal Coronavir OC43 PCR NOT DETECTED Nasal Enterovir/Rhinovir PCR NOT DETECTED Nasal Influenza B PCR NOT DETECTED Nasal Influenza A PCR NOT DETECTED Nasal Parainfluen 1 PCR NOT DETECTED Nasal Parainfluen 2 PCR NOT DETECTED Nasal Parainfluen 3 PCR NOT DETECTED Nasal Parainfluen 4 PCR NOT DETECTED Nasal RSV (PCR) NOT DETECTED Nasal B.pertussis DNA PCR NOT DETECTED Nasal C.pneumoniae (PCR) NOT DETECTED Jono Human Metapneumo PCR NOT DETECTED Nasal M.pneumoniae (PCR) NOT DETECTED Nasal SARS-CoV-2 (PCR) NOT DETECTED Urine Opiates Screen NEGATIVE Ur Buprenorphine Scrn NEGATIVE Ur Oxycodone Screen NEGATIVE Urine Methadone Screen NEGATIVE Ur Barbiturates Screen NEGATIVE Ur Tricyclics Screen NEGATIVE Ur Phencyclidine Scrn NEGATIVE Ur Amphetamine Screen POSITIVE H U Methamphetamines Scrn NEGATIVE U Benzodiazepines Scrn POSITIVE H Urine Cocaine Screen NEGATIVE U Cannabinoids Screen POSITIVE H Ur Drug Screen Comment CUTOFF CONC BELOW: PD Medical Decision Making - ED course ED course: 43-year-old male presents emergency department for what his original complaints were some dizziness and arm numbness and tingling. EKG was done and shows no ST elevation T wave inversions or other signs of acute coronary syndrome. Labs are also complete for further evaluation and were found to be overall unremarkable, normal CBC, BUN slightly elevated at 25, bilirubin barely elevated at 1.1 urinalysis unremarkable negative for respiratory panel he did test positive for amphetamine but he is on Vyvanse he also tested positive for benzodiazepines unsure what this is coming from and also tested positive for cannabinoids. After further discussion with the patient he says that he is having a lot of marital issues and his is currently leaving him and he has been having a lot of increased anxiety and depression because of this. He is interested in speaking with the social and political studies professor and after speaking with social and political studies professor he wants to do inpatient psychiatric hospitalization as he does not feel safe to return home. Social work involved and we have attempted multiple times to get patient to placement for inpatient therapy unfortunately we are unable to do so as he was not acute enough. Eventually patient decided to discharge home with a safety plan and return back to the emergency department if he starts to have any suicidal ideation. He has close follow-up with psychiatry and therapist and is well established with mental health resources. Strict ER return precautions given Departure - Departure Disposition: 01 Home, Self Care Clinical Impression: Mental health problem Instructions: Depression Mind Body, Depression Help Tips Comments: Thank you for trusting us with your care. We will let social work know that you decided to go home and I want you to follow-up with your psychiatrist and therap ist as soon as possible to let them know about today's ER visit and there are ways to still pursue inpatient therapy through the support of your therapist. Please do not hesitate to return back to the emergency department as soon as possible if you start to develop any suicidal or homicidal ideation. Forms: PCP List Discharge Date/Time: 12/12/23 21:42
[2023-12-12] MEDS: hydrOXYzine PAMOATE 25 MG CAPSULE PO STA (13:43)
[2023-12-12 13:50] LABS: B. PARAPERTUSSIS- RESP PCR PAN NOT DETECTED; B. PERTUSSIS- RESP PCR PANEL NOT DETECTED; C. PNEUMONIAE- RESP PCR PANEL NOT DETECTED; CORONAVIRUS 229E-RESP PCR NOT DETECTED; CORONAVIRUS HKU1-RESP PCR NOT DETECTED; CORONAVIRUS NL63-RESP PCR NOT DETECTED; CORONAVIRUS OC43-RESP PCR NOT DETECTED; HUMAN METAPNEUMOVIRUS NOT DETECTED; INFLUENZA A- RESP PCR PANEL NOT DETECTED; INFLUENZA B - RESP PCR PANEL NOT DETECTED; M. PNEUMONIAE- RESP PCR PANEL NOT DETECTED; PARAINFLUENZA VIRUS 1 NOT DETECTED; PARAINFLUENZA VIRUS 2 NOT DETECTED; PARAINFLUENZA VIRUS 3 NOT DETECTED; PARAINFLUENZA VIRUS 4 NOT DETECTED; RHINOVIRUS/ENTEROVIRUS NOT DETECTED; RSV- RESP PCR PANEL NOT DETECTED; SARS-CoV-2 -RESP PCR PANEL NOT DETECTED
[2023-12-12 13:51] LABS: BILIRUBIN,URINE NEGATIVE (NEGATIVE); GLUCOSE, URINE (UA) NEGATIVE (NEGATIVE); KETONES,URINE (UA) NEGATIVE (NEGATIVE); LEUKOCYTE ESTERASE, URINE NEGATIVE (NEGATIVE); NITRITE,URINE NEGATIVE (NEGATIVE); OCCULT BLOOD,URINE NEGATIVE (NEGATIVE); PH,URINE 7.5 PH (5.0-7.5); PROTEIN,URINE TRACE mg/dL (NEGATIVE); UROBILINOGEN,URINE 0.2 (NORMAL) E.U./dL (NORMAL)
[2023-12-12 14:03] LABS: AMPHETAMINE SCREEN,URINE POSITIVE (NEGATIVE); BENZODIAZEPINES SCREEN, URINE POSITIVE (NEGATIVE); THC CANNABINOID SCREEN, URINE POSITIVE (NEGATIVE)
[2023-12-12 14:04] LABS: BARBITURATE SCREEN,UR NEGATIVE (NEGATIVE); BUPRENORPHINE SCREEN, URINE NEGATIVE (NEGATIVE); COCAINE SCREEN URINE NEGATIVE (NEGATIVE); METHADONE SCREEN, URINE NEGATIVE (NEGATIVE); METHAMPHETAMINES SCREEN, URINE NEGATIVE (NEGATIVE); OPIATE SCREEN, URINE NEGATIVE (NEGATIVE); OXYCODONE SCREEN, URINE NEGATIVE (NEGATIVE); TRICYCLIC ANTIDEPRESSANT,URINE NEGATIVE (NEGATIVE)
[2023-12-12 14:05] LABS: CLARITY,URINE CLEAR (CLEAR)
[2023-12-12 21:42] VITALS: BP 123/81; O2SAT 98
== END 2023-12-12 21:42 | disposition home or self-care (01) ==
LOC: ED 11:16
DX: F32.A Depression, unspecified (principal); F41.9 Anxiety disorder, unspecified; R42 Dizziness and giddiness; R53.1 Weakness; I10 Essential (primary) hypertension; E78.00 Pure hypercholesterolemia, unspecified; F43.10 Post-traumatic stress disorder, unspecified; F17.200 Nicotine dependence, unspecified, uncomplicated; Z79.899 Other long term (current) drug therapy
CPT/HCPCS: 36415; 80053; 80306; 81003; 83690; 83735; 84484; 85025; 87633; 93005; 99284; A9270; 81001; 87086